=== PATIENT | female | born 1990 | race Caucasian/White ===

== ENCOUNTER 2017-11-14 16:30 | Emergency (ER) | payer SELFPAY ==
[2017-11-14 16:44] VITALS: BP 149/91
--- NOTE | 2017-11-14 17:12 | EDM.PDOC ---
ED HPI GENERAL MEDICAL PROBLEM - General Chief Complaint: ENT Problem Stated Complaint: INFECTED TOOTH Time Seen by Provider: 11/14/17 16:45 Source of Information: Reports: Patient, RN Notes Reviewed - History of Present Illness INITIAL COMMENTS - FREE TEXT/NARRATIVE: 26-year-old lady comes in with right upper posterior molar dental discomfort has been worsening over the past several days. Had light sensitivity fairly constant ache only partially relieved by Tylenol. Is about 21 weeks . The is been going well for her. No abdominal pain, fever, chills, nausea or vomiting. Right Upper Tooth/Teeth Pain Score (Numeric/FACES): 6 - Related Data Allergies Allergy/AdvReac Type Severity Reaction Status Date / Time No Known Allergies Allergy Verified 03/09/16 01:32 Home Meds: Home Meds Ondansetron HCl [Zofran] 4 mg PO Q8H PRN 11/14/17 [History] Vit #108/Iron/FA [ One Tablet] 1 tab PO DAILY 11/14/17 [History ] Past Medical History - Past Health History Medical/Surgical History: Denies Medical/Surgical History Social & Family History - Family History Family Medical History: Noncontributory - Tobacco Use Smoking Status *Q: Never Smoker - Caffeine Use Caffeine Use: Reports: Coffee, Soda - Recreational Drug Use Recreational Drug Use: No - Living Situation & Occupation Living situation: Reports: Single Occupation: Employed ED ROS ENT - Review of Systems Review Of Systems: See Below Constitutional: Denies: Fever, Chills HEENT: Reports: Dental Pain Respiratory: Reports: No Symptoms Cardiovascular: Reports: No Symptoms GI/Abdominal: Reports: No Symptoms Musculoskeletal: Reports: No Symptoms Skin: Reports: No Symptoms Neurological: Reports: No Symptoms ED EXAM, ENT - Physical Exam Exam: See Below General Appearance: Alert, Mild Distress Nose: Normal Inspection Mouth/Throat: Dental Pain (There is some tenderness of the right upper posterior molar, no visible swelling, no drainage), Dental Tenderness. No: Pharyngeal Erythema, Throat Pain, Tonsillar Swelling Head: No: Facial Swelling Neck: No: Lymphadenopathy (L), Lymphadenopathy (R) Respiratory/Chest: No Respiratory Distress, Normal Breath Sounds Extremities: Normal Inspection, Normal Range of Motion Neurological: Alert, Oriented, No Motor/Sensory Deficits Skin: Warm, Dry, Normal Color Course - Vital Signs Last Recorded V/S: Last Vital Signs Temp 99.0 F 11/14/17 16:48 Pulse 93 11/14/17 16:43 Resp 20 11/14/17 16:43 BP 149/91 H 11/14/17 16:43 Pulse Ox 100 11/14/17 16:43 Departure - Departure Time of Disposition: 17:04 Disposition: Home, Self-Care 01 Condition: Fair Clinical Impression: Pain, dental, Second trimester - Discharge Information Instructions: Dental Abscess, [id number] Referrals: Josie Alcantara MD [Primary Care Provider] - Forms: ED Department Discharge Additional Instructions: Amoxicillin 1000 mg twice daily for 1 week, continue Tylenol 2-3 times daily or Tylenol 500 mg with one half tablet 12/07/24 hydrocodone up to every 6-8 hours if needed for severe pain or difficulty sleeping. See dentist as soon as possible. Follow-up clinic as needed, return to ED as needed if symptoms worsening in any way.
== END 2017-11-14 17:07 | disposition home or self-care (01) ==
LOC: SUPCPDRO 16:30 → JD.ED 16:30
DX: O99.612 Diseases of the digestive system complicating pregnancy, second trimester (principal); K08.89 Other specified disorders of teeth and supporting structures; Z3A.21 21 weeks gestation of pregnancy
CPT/HCPCS: 99282; 99283

== ENCOUNTER 2018-03-20 00:59 | Inpatient (IN) | payer SELFPAY ==
[2018-03-20] MEDS ORDERED: Sodium Chloride 0.9% 10 ML Syringe FLUSH PRN (12:41)
[2018-03-20] MEDS ORDERED: Nalbuphine 20 MG/ML 1 ML Syringe IVPUSH PRN (12:41)
[2018-03-20] MEDS ORDERED: Oxytocin/Lactated Ringers 10 UNIT/1,000 ML BAG IV SCH (13:30)
[2018-03-20] MEDS: Lactated Ringers 1,000 ML IV SCH ×3 (13:56→20:00)
--- NOTE | 2018-03-20 14:47 | PCM.PREANE ---
Preanesthetic Assessment - Anesthesia/Transfusion/Family Hx Anesthesia History: No Prior Anesthesia (Only epidural with the previous labor) Transfusion History: No Prior Transfusion(s) - Review of Systems General: No Symptoms Pulmonary: No Symptoms Cardiovascular: No Symptoms Gastrointestinal: No Symptoms Neurological: No Symptoms Other: Reports: None - Physical Assessment NPO Status Date: 03/20/18 NPO Status Time: 14:45 Pulse: 90 Blood Pressure: 135/73 Height: 1.57 m Weight: 77.111 kg ASA Class: 2 Mental Status: Alert & Oriented x3 Airway Class: Mallampati = 3 Dentition: Reports: Broken Tooth/Teeth (chipped upper incisors, caries rt upper molars) Thyro-Mental Finger Breadths: 3 Mouth Opening Finger Breadths: 3 ROM/Head Extension: Full - Lab Values: Laboratory Last Values WBC 10.77 K/mm3 (3.98-10.04) H 03/20/18 12:55 RBC 4.06 M/mm3 (3.98-5.22) 03/20/18 12:55 Hgb 12.6 gm/L (11.2-15.7) 03/20/18 12:55 Hct 36.1 % (34.1-44.9) 03/20/18 12:55 MCV 88.9 fl (79.4-94.8) 03/20/18 12:55 MCH 31.0 pg (25.6-32.2) 03/20/18 12:55 MCHC 34.9 g/dl (32.2-35.5) 03/20/18 12:55 RDW Std Deviation 45.9 fL (36.4-46.3) 03/20/18 12:55 Plt Count 190 K/mm3 (182-369) 03/20/18 12:55 MPV 11.0 fl (9.4-12.3) 03/20/18 12:55 Neut % (Auto) 72.3 % (34.0-71.1) H 03/20/18 12:55 Lymph % (Auto) 20.9 % (19.3-51.7) 03/20/18 12:55 Ida % (Auto) 5.8 % (4.7-12.5) 03/20/18 12:55 Eos % (Auto) 0.6 (0.7-5.8) L 03/20/18 12:55 Baso % (Auto) 0.1 % (0.1-1.2) 03/20/18 12:55 Neut # (Auto) 7.79 K/mm3 (1.56-6.13) H 03/20/18 12:55 Lymph # (Auto) 2.25 K/mm3 (1.18-3.74) 03/20/18 12:55 Ida # (Auto) 0.63 K/mm3 (0.24-0.36) H 03/20/18 12:55 Eos # (Auto) 0.06 K/mm3 (0.04-0.36) 03/20/18 12:55 Baso # (Auto) 0.01 K/mm3 (0.01-0.08) 03/20/18 12:55 BUN 10 mg/dL (7-18) 03/20/18 12:55 Creatinine 0.6 mg/dL (0.55-1.02) 03/20/18 12:55 Est Cr Clr Drug Dosing 111.39 mL/min 03/20/18 12:55 Estimated GFR (MDRD) > 60 mL/min (>60) 03/20/18 12:55 Uric Acid 5.9 mg/dL (2.6-6.0) 03/20/18 12:55 AST 16 U/L (15-37) 03/20/18 12:55 ALT 15 U/L (14-59) 03/20/18 12:55 Lactate Dehydrogenase 175 U/L (81-234) 03/20/18 12:55 Ur Random Creatinine 72.2 mg/dL (30.0-125.0) 03/20/18 13:00 U Random Total Protein 8.9 mg/dL (0.0-11.8) 03/20/18 13:00 Protein/Creatinin Ratio 123.3 mg/g (0-149) 03/20/18 13:00 RPR Non-reactive (NONREACTIVE) 03/20/18 12:55 - Allergies Allergies/Adverse Reactions: Allergies Allergy/AdvReac Type Severity Reaction Status Date / Time No Known Allergies Allergy Verified 03/09/16 01:32 - Acknowledgements Anesthesia Type Planned: Epidural Pt an Appropriate Candidate for the Planned Anesthesia: Yes Alternatives and Risks of Anesthesia Discussed w Pt/Guardian: Yes Pt/Guardian Understands and Agrees with Anesthesia Plan: Yes PreAnesthesia Questionnaire - Past Health History Medical/Surgical History: Denies Medical/Surgical History 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 OB/BYN History: induced HTN - SUBSTANCE USE Smoking Status *Q: Never Smoker Tobacco Use Within Last Twelve Months: No Second Hand Smoke Exposure: No Recreational Drug Use History: No - HOME MEDS Home Medications: Home Meds Ondansetron HCl [Zofran] 4 mg PO Q8H PRN 11/14/17 [History] Vit #108/Iron/FA [ One Tablet] 1 tab PO DAILY 11/14/17 [History ] - CURRENT (IN HOUSE) MEDS Current Meds: Current Medications Lactated Ringer's (Ringers, Lactated) 1,000 mls @ 100 mls/hr IV ASDIRECTED RICHA Last Admin: 03/20/18 13:56 Dose: 100 mls/hr Oxytocin/Lactated Ringer's (Pitocin In Lr 10 Units/1,000 Ml) 10 unit in 1,000 mls @ 12 mls/hr IV TITRATE RICHA; Protocol Last Admin: 03/20/18 13:55 Dose: 2 munits/min, 12 mls/hr Nalbuphine HCl (Nubain) 10 mg IVPUSH Q2H PRN PRN Reason: pain Sodium Chloride (Saline Flush) 10 ml FLUSH ASDIRECTED PRN PRN Reason: Keep Vein Open
[2018-03-20] MEDS ORDERED: fentaNYL 100 MCG/2 ML SDV EPIDUR PRN (15:02)
[2018-03-20] MEDS ORDERED: Bupivacaine/fentaNYL/NS 100 ML Bag EPIDUR SCH (15:15)
[2018-03-20] MEDS ORDERED: Bupivacaine 0.25% 10 ML SDV ONE (22:00)
--- NOTE | 2018-03-21 01:21 | PCM.SN ---
- Free Text/Narrative Note: Stage I -patient presented with elevated blood pressures from clinic decision to induce for gestational hypertension. Pitocin induction with artificial rupture of membranes. Epidural anesthesia. Normal labs. Progressed to complete with overall reassuring heart tones. Stage II - spontaneous vaginal delivery of viable female, weight 20/9/20 grams, Apgars 8/9 at 1259. Head delivered in a controlled manner over intact perineum, body and shoulders followed atraumatically. Infant to maternal abdomen. Cord clamped and cut. Cord blood collected. Stage III - spontaneous vaginal delivery of intact placenta with three-vessel cord EBL 250 no lacerations.
[2018-03-21] MEDS ORDERED: Benzocaine/Menthol 20%-0.5% Spray 56 GM Canister TOP PRN (02:18)
[2018-03-21] MEDS ORDERED: Docusate Sodium 100 MG Cap PO PRN (02:18)
[2018-03-21] MEDS ORDERED: Witch Hazel Medicated Pads 100/Jar TOP PRN (02:18)
[2018-03-21] MEDS ORDERED: Lanolin 100% Cream 7 GM Tube TOP PRN (02:18)
[2018-03-21] MEDS: Ibuprofen 600 MG Tab PO PRN ×3 (03:32→23:18)
--- NOTE | 2018-03-21 14:08 | PCM48HPAN ---
Post Anesthesia Note - EVALUATION WITHIN 48HRS OF ANESTHETIC Vital Signs in Normal Range: Yes Patient Participated in Evaluation: Yes Respiratory Function Stable: Yes Airway Patent: Yes Cardiovascular Function Stable: Yes Hydration Status Stable: Yes Pain Control Satisfactory: Yes Nausea and Vomiting Control Satisfactory: Yes Mental Status Recovered: Yes Pulse Rate: 80 Resp Rate: 16 Temperature: 98.6 F Blood Pressure: 125/72 - COMMENTS/OBSERVATIONS Free Text/Narrative:: Patient is on her day 1. Stated understanding about possible backaches following epidural anesthesia. Mentions having some minor back soreness at this time. Explanation given about importance of avoiding back straining. Denies any headache or lightheadedness at this time. Comfortable now. Ambulating, no difficulty urinating.
[2018-03-22 04:46] VITALS: BP 125/74
--- NOTE | 2018-03-22 12:14 | PCM.DCSUM1 ---
Discharge Summary - Hospital Course Brief History: Admitted for induction. Uncomplicated labor, delivery and Diagnosis: Stroke: No - Discharge Data Discharge Date: 03/22/18 Discharge Disposition: Home, Self-Care 01 Condition: Good - Patient Instructions Diet: Usual Diet as Tolerated Activity: No Strenuous Activities Driving: May Drive Today Showering/Bathing: May Shower Notify Provider of: Fever, Increased Pain, Swelling and Redness, Drainage, Nausea and/or Vomiting - Discharge Plan *PRESCRIPTION DRUG MONITORING PROGRAM REVIEWED*: No *COPY OF PRESCRIPTION DRUG MONITORING REPORT IN PATIENT BAM: No Referrals: Josie Alcantara MD [Primary Care Provider] - (6 weeks) - General Info Date of Service: 03/22/18 Functional Status: Reports: Pain Controlled - Review of Systems General: Reports: No Symptoms HEENT: Reports: No Symptoms Pulmonary: Reports: No Symptoms Cardiovascular: Reports: No Symptoms Gastrointestinal: Reports: No Symptoms Genitourinary: Reports: No Symptoms Musculoskeletal: Reports: No Symptoms Skin: Reports: No Symptoms Neurological: Reports: No Symptoms Psychiatric: Reports: No Symptoms - Patient Data Vitals - Most Recent: Last Vital Signs Temp 36.8 C 03/22/18 04:02 Pulse 89 03/22/18 04:02 Resp 16 03/22/18 04:02 BP 125/74 03/22/18 04:02 Pulse Ox 97 03/22/18 04:02 Weight - Most Recent: 77.111 kg I&O - Last 24 hours: Intake & Output 03/21/18 03/22/18 03/22/18 22:59 06:59 14:59 Intake Total 60 2 300 Balance 60 2 300 Lab Results - Last 24 hrs: Laboratory Results - last 24 hr 03/21/18 Range/Units 15:01 Blood Type A NEGATIVE Gel Antibody Screen Negative Screen 0 ros/5 flds - neg RhIG Candidate? Yes Rhogam Indicated Yes, baby rh pos H Med Orders - Current: Current Medications Benzocaine/Menthol (Dermoplast Pain Relief [place]) 0 gm TOP ASDIRECTED PRN PRN Reason: Perineal Comfort Measure Docusate Sodium (Colace) 100 mg PO BID PRN PRN Reason: Constipation Emollient Ointment (Lansinoh Hpa) 0 gm TOP ASDIRECTED PRN PRN Reason: Sore Nipples Last Admin: 03/21/18 17:19 Dose: 1 tube Ibuprofen (Motrin) 600 mg PO Q6H PRN PRN Reason: Mild pain or fever Last Admin: 03/21/18 23:18 Dose: 600 mg Witch Anaya (Tucks) 1 pad TOP ASDIRECTED PRN PRN Reason: Hemorrhoid pain Discontinued Medications Bupivacaine HCl (Sensorcaine-Mpf 0.25%) 10 ml .ROUTE .STK-MED ONE Stop: 03/20/18 22:01 Fentanyl (Sublimaze) 100 mcg EPIDUR Q3H PRN PRN Reason: Pain Last Admin: 03/20/18 19:16 Dose: 100 mcg Fentanyl/Bupivacaine HCl (Fentanyl/Bupivacaine/Ns 2 Mcg-0.125% 100 Ml) 100 ml EPIDUR ASDIRECTED RICHA Last Admin: 03/20/18 19:16 Dose: 100 ml Lactated Ringer's (Ringers, Lactated) 1,000 mls @ 100 mls/hr IV ASDIRECTED RICHA Last Admin: 03/20/18 20:00 Dose: 100 mls/hr Oxytocin/Lactated Ringer's (Pitocin In Lr 10 Units/1,000 Ml) 10 unit in 1,000 mls @ 12 mls/hr IV TITRATE RICHA; Protocol Last Titration: 03/21/18 00:04 Dose: 11 munits/min, 66 mls/hr Nalbuphine HCl (Nubain) 10 mg IVPUSH Q2H PRN PRN Reason: pain Sodium Chloride (Saline Flush) 10 ml FLUSH ASDIRECTED PRN PRN Reason: Keep Vein Open - Exam General: Reports: Alert, Oriented HEENT: Reports: Pupils Equal, Pupils Reactive, EOMI, Mucous Membr. Moist/Light [place] Neck: Reports: Supple Lungs: Reports: Clear to Auscultation, Normal Respiratory Effort Cardiovascular: Reports: Regular Rate, Regular Rhythm GI/Abdominal Exam: Normal Bowel Sounds, Soft, Non-Tender, No Organomegaly, No Distention, No Abnormal Bruit, No Mass, Pelvis Stable (Female) Exam: Normal External Exam, Normal Speculum Exam, Normal Bimanual Exam Back Exam: Reports: Normal Inspection, Full Range of Motion Extremities: Normal Inspection, Normal Range of Motion, Non-Tender, No Pedal Edema, Normal Capillary Refill Skin: Reports: Warm, Dry, Intact Wound/Incisions: Reports: Healing Well Neurological: Reports: No New Focal Deficit Psy/Mental Status: Reports: Alert, Normal Affect, Normal Mood
== END 2018-03-22 14:05 | disposition home or self-care (01) | DRG 775 ==
LOC: JD.OB 00:59 → OBSVTOIN 03-21 00:59 → JD.OB 03-21 01:00
PROVIDERS: ADMIT Obstetrics & Gynecology; ATTEND Obstetrics & Gynecology
PROC: 10907ZC Drainage of Amniotic Fluid, Therapeutic from Products of Conception, Via Natural or Artificial Opening (ICD-10-PCS; 2018-03-20)
PROC: 00HU33Z Insertion of Infusion Device into Spinal Canal, Percutaneous Approach (ICD-10-PCS; 2018-03-20)
PROC: 3E0R3BZ Introduction of Anesthetic Agent into Spinal Canal, Percutaneous Approach (ICD-10-PCS; 2018-03-20)
PROC: 10E0XZZ Delivery of Products of Conception, External Approach (ICD-10-PCS; principal; 2018-03-21)
PROC: 6A550ZT Pheresis of Cord Blood Stem Cells, Single (ICD-10-PCS; 2018-03-21)
DX: O13.4 Gestational [pregnancy-induced] hypertension without significant proteinuria, complicating childbirth (principal); Z3A.39 39 weeks gestation of pregnancy; Z37.0 Single live birth
CPT/HCPCS: 36415; 36430; 51702; 59025; 59409; 82565; 82570; 83615; 84156; 84450; 84460; 84520; 84550; 85025; 85461; 86592; 86850; 86900; 86901; A9270-GY; J2590; J2790; J3010; J3490; J7120

== ENCOUNTER 2018-09-08 11:10 | Emergency (ER) | payer MEDICAID ==
[2018-09-08 11:41] VITALS: BP 136/88
--- NOTE | 2018-09-08 11:57 | EDM.PDOC ---
ED HPI GENERAL MEDICAL PROBLEM - General Chief Complaint: Head Injury Stated Complaint: HEAD INJURY Time Seen by Provider: 09/08/18 11:35 Source of Information: Reports: Patient, RN Notes Reviewed - History of Present Illness INITIAL COMMENTS - FREE TEXT/NARRATIVE: 27-year-old female slipped on the ice, fell backwards late last evening about 12 hours ago striking the back of her head fairly hard. She was dazed mildly but there was no LOC. Have moderate headache and dizziness after the fall last evening. The headache is less severe this morning but still present. She does have intermittent nausea this morning and also feels some nonspecific dizziness , especially when moving. She has had no memory loss, speech difficulty, focal numbness or weakness. No history of prior concussions. Mild neck stiffness, no major back discomfort. 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 Denies: Fever, Chills, Diaphoresis HEENT: Denies: Sinus Problem, Throat Pain, Vertigo Respiratory: Denies: Pleuritic Chest Pain Cardiovascular: Denies: Chest Pain GI/Abdominal: Reports: Nausea. Denies: Abdominal Pain, Vomiting Musculoskeletal: Reports: Neck Pain (Mild soreness especially right-sided) Skin: Reports: No Symptoms Neurological: Reports: Dizziness, Headache. Denies: Confusion, Numbness, Trouble Speaking, Difficulty Walking, Weakness, Change in Speech, Gait Disturbance ED EXAM, HEAD INJURY - Physical Exam Exam: See Below General Appearance: Alert, Mild Distress Head: Atraumatic, Other (No visible bruising or swelling, no bony tenderness of the head or face) Eyes: Bilateral Eye: PERRL Nose: Normal Inspection Throat/Mouth: Normal Inspection Neck: Tenderness. No: Spinous Processes Tender, Tender Midline Respiratory: No Respiratory Distress, Lungs Clear, Normal Breath Sounds Cardiovascular: Regular Rate, Rhythm GI/Abdominal Exam: Soft, Non-Tender Back Exam: Other (No visible bruising or swelling). No: Paraspinal Tenderness, Vertebral Tenderness Extremities: Normal Inspection, Normal Range of Motion Neurologic: No Motor/Sensory Deficits, Normal Mood/Affect, Oriented x 3, Other ( Finger to nose testing normal) Skin: Normal Color, Warm/Dry Course - Vital Signs Last Recorded V/S: Last Vital Signs Temp 97.5 F 09/08/18 11:33 Pulse 75 09/08/18 11:33 Resp 14 09/08/18 11:33 BP 136/88 09/08/18 11:33 Pulse Ox 99 09/08/18 11:33 - Re-Assessments/Exams Free Text/Narrative Re-Assessment/Exam: 09/08/18 12:29 Patient had no LOC, she does have mild headache today somewhat worse with motion but much improved from last evening. Her main concerns are the nonspecific dizziness and intermittent nausea. We have discussed that these are fairly typical symptoms of mild to moderate concussion. The treatment for concussion is rest and time. Head CT not clinically indicated at this time. She is good with that. Discharge instructions as documented. Departure - Departure Time of Disposition: 11:55 Disposition: Home, Self-Care 01 Condition: Fair Clinical Impression: Concussion with no loss of consciousness - Discharge Information Instructions: Concussion, Adult, [id number] Referrals: Nelly Gee PA-C [Primary Care Provider] - Forms: ED Department Discharge Additional Instructions: The treatment for concussion is rest and time. Rest as best you can, especially this next few days, physical rest and also brain rest is tremendously important. no strenuous activity recommended for at least a week, you may use Zofran every 6-8 hours if needed for nausea or vomiting, may safely take Tylenol every 6-8 hours if needed for further headache, low clinic if symptoms of headache, nausea, dizziness not resolving over the next 2-3 days as expected , return to ED as needed if symptoms worsening in any way.
== END 2018-09-08 12:05 | disposition home or self-care (01) ==
LOC: JD.ED 11:10
DX: S06.0X0A Concussion without loss of consciousness, initial encounter (principal); I10 Essential (primary) hypertension; W19.XXXA Unspecified fall, initial encounter
CPT/HCPCS: 99283

== ENCOUNTER 2019-08-28 15:13 | Inpatient (IN) | payer MEDICAID ==
[2019-08-28] MEDS ORDERED: Lidocaine 1.5% with EPINEPHrine 1:200,000 5 ML Amp ONE (16:00)
[2019-08-28] MEDS ORDERED: Nalbuphine 10 MG/ML Syringe IVPUSH PRN (16:02)
[2019-08-28] MEDS ORDERED: Sodium Chloride 0.9% 10 ML Syringe FLUSH PRN (16:02)
[2019-08-28] MEDS ORDERED: ePHEDrine 50 MG/ML SDV IVPUSH PRN (16:04)
[2019-08-28] MEDS ORDERED: diphenhydrAMINE 50 MG/ML SDV IVPUSH PRN (16:04)
[2019-08-28] MEDS ORDERED: fentaNYL/Bupivacaine/NS 2 MCG-0.125% 250 ML EPIDUR PRN (16:04)
[2019-08-28] MEDS ORDERED: fentaNYL 100 MCG/2 ML SDV EPIDUR PRN (16:04)
[2019-08-28] MEDS ORDERED: Oxytocin/Lactated Ringers 10 UNIT/1,000 ML BAG IV SCH ×2 (16:15)
--- NOTE | 2019-08-28 16:19 | PCM.PREANE ---
Preanesthetic Assessment - Procedure Proposed Procedure: Continuous Labor Epidural - Anesthesia/Transfusion/Family Hx Anesthesia History: Prior Anesthesia Without Reaction (Only epidural with the previous labor) Transfusion History: No Prior Transfusion(s) Intubation History: Unknown - Review of Systems General: No Symptoms Pulmonary: No Symptoms Cardiovascular: No Symptoms Gastrointestinal: No Symptoms Neurological: No Symptoms Other: Reports: None - Physical Assessment Height: 1.57 m Weight: 80.286 kg ASA Class: 2 Mental Status: Alert & Oriented x3 Airway Class: Mallampati = 3 Dentition: Reports: Broken Tooth/Teeth (chipped upper incisors , caries rt upper molars), Caries Thyro-Mental Finger Breadths: 3 Mouth Opening Finger Breadths: 3 ROM/Head Extension: Full Lungs: Clear to Auscultation, Normal Respiratory Effort Cardiovascular: Regular Rate, Regular Rhythm - Lab Values: Laboratory Last Values Membrane Rupture Positive H 08/28/19 15:33 - Allergies Allergies/Adverse Reactions: Allergies Allergy/AdvReac Type Severity Reaction Status Date / Time No Known Allergies Allergy Verified 09/08/18 11:32 - Blood Blood Available: Yes Product(s) Available: PRBC - Anesthesia Plan Beta Carlos A: Labetalol - Acknowledgements Anesthesia Type Planned: Epidural Pt an Appropriate Candidate for the Planned Anesthesia: Yes Alternatives and Risks of Anesthesia Discussed w Pt/Guardian: Yes Pt/Guardian Understands and Agrees with Anesthesia Plan: Yes PreAnesthesia Questionnaire - Past Health History Medical/Surgical History: Denies Medical/Surgical History Cardiovascular History: Reports: Hypertension (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) 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 OB/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 History: induced HTN - HOME MEDS Home Medications: Home Meds Labetalol [Normodyne] 100 mg PO BID 08/28/19 [History] - CURRENT (IN HOUSE) MEDS Current Meds: Current Medications Diphenhydramine HCl (Benadryl) 25 mg IVPUSH Q6H PRN PRN Reason: pruritis Ephedrine Sulfate (Ephedrine Sulfate) 5 mg IVPUSH ASDIRECTED PRN PRN Reason: Hypotension Fentanyl (Sublimaze) 100 mcg EPIDUR Q3H PRN PRN Reason: Pain Fentanyl/Bupivacaine HCl (Fentanyl/Bupivacaine/Ns 2 Mcg-0.125% 250 Ml) 250 ml EPIDUR CONTINUOUS PRN PRN Reason: Pain Lactated Ringer's (Ringers, Lactated) 1,000 mls @ 100 mls/hr IV ASDIRECTED RICHA Oxytocin/Lactated Ringer's (Pitocin In Lr 10 Units/1,000 Ml) 10 unit in 1,000 mls @ 12 mls/hr IV TITRATE RICHA; Protocol Oxytocin/Lactated Ringer's (Pitocin In Lr 10 Units/1,000 Ml) 10 unit in 1,000 mls @ 100 mls/hr IV .CONTINUOUS RICHA Nalbuphine HCl (Nubain) 10 mg IVPUSH Q2H PRN PRN Reason: Pain Sodium Chloride (Saline Flush) 10 ml FLUSH ASDIRECTED PRN PRN Reason: Keep Vein Open
[2019-08-28] MEDS ORDERED: Labetalol 100 MG Tab PO ONE (16:46)
[2019-08-28] MEDS: Lactated Ringers 1,000 ML IV SCH ×3 (17:37→22:43)
--- NOTE | 2019-08-28 19:28 | PCM.LDHP ---
L&D History of Present Illness - General Date of Service: 08/28/19 Admit Problem/Dx: Patient Status Order with Admit Dx/Problem 08/28/19 15:22 Patient Status [ADT] Routine 08/28/19 16:03 Patient Status [ADT] Routine Admission Diagnosis/Problem Admission Diagnosis/Problem Source of Information: Patient History Limitations: Reports: No Limitations - History of Present Illness Introduction:: 28 year old at 38w3 here with SROM. PNC with myself complicated by hypertension. 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 Other OB/BYN History: induced HTN Hematologic History: Reports: Anemia Other Hematologic History: anemia in Social & Family History - Family History Family Medical History: Noncontributory - Tobacco Use Smoking Status *Q: Never Smoker - Caffeine Use Caffeine Use: Reports: Coffee - Recreational Drug Use Recreational Drug Use: No - Living Situation & Occupation Living situation: Reports: Single Occupation: Employed H&P Review of Systems - Review of Systems: Review Of Systems: See Below General: Reports: No Symptoms HEENT: Reports: No Symptoms Pulmonary: Reports: No Symptoms Cardiovascular: Reports: No Symptoms Gastrointestinal: Reports: No Symptoms Genitourinary: Reports: No Symptoms Musculoskeletal: Reports: No Symptoms Skin: Reports: No Symptoms Psychiatric: Reports: No Symptoms Neurological: Reports: No Symptoms Hematologic/Lymphatic: Reports: No Symptoms Immunologic: Reports: No Symptoms L&D Exam - Exam Exam: See Below - Vital Signs Vital Signs: Last Vital Signs Temp 37.3 C 08/28/19 15:22 Pulse 92 08/28/19 17:15 Resp 18 08/28/19 15:22 BP 153/85 H 08/28/19 17:15 Pulse Ox 99 08/28/19 15:22 Weight: 80.286 kg - OB Specific Contraction Intensity: Strong Movement: Active Heart Tones: Present Heart Rate (FHR) Variability: Moderate (6-25 bmp) Presentation: Vertex - Rice Score Rice Score Cervix Position: Midposition Rice Score Consistency: Soft Rice Score Effacement: 51-70% Rice Score Dilation: 3-4 cm Rice Score 's Station: -2 Rice Score Total: 8 - Exam General: Alert, Oriented HEENT: PERRLA, Conjunctiva Clear, EACs Clear, EOMI, Hearing Intact, Mucosa Moist & [place], Nares Patent, Normal Nasal Septum, Posterior Pharynx Clear, TMs Clear Neck: Supple, Trachea Midline Lungs: Clear to Auscultation, Normal Respiratory Effort Cardiovascular: Regular Rate, Regular Rhythm GI/Abdominal Exam: Normal Bowel Sounds, Soft, Non-Tender, No Organomegaly, No Distention, No Abnormal Bruit, No Mass, Pelvis Stable Back Exam: Normal Inspection, Full Range of Motion Extremities: Normal Inspection, Normal Range of Motion, Non-Tender, No Pedal Edema, Normal Capillary Refill Skin: Warm, Dry, Intact Neurological: Cranial Nerves Intact, Reflexes Equal Bilateral Psychiatric: Alert, Normal Affect, Normal Mood - Patient Data Lab Results Last 24 hrs: Laboratory Results - last 24 hr 08/28/19 08/28/19 08/28/19 Range/Units 15:33 16:17 16:17 WBC 11.02 H (3.98-10.04) K/mm3 RBC 4.25 (3.98-5.22) M/mm3 Hgb 12.8 (11.2-15.7) gm/dl Hct 37.7 (34.1-44.9) % MCV 88.7 (79.4-94.8) fl MCH 30.1 (25.6-32.2) pg MCHC 34.0 (32.2-35.5) g/dl RDW Std Deviation 47.2 H (36.4-46.3) fL Plt Count 235 (182-369) K/mm3 MPV 10.8 (9.4-12.3) fl Neut % (Auto) 71.8 H (34.0-71.1) % Lymph % (Auto) 20.8 (19.3-51.7) % [place] % (Auto) 6.4 (4.7-12.5) % Eos % (Auto) 0.6 L (0.7-5.8) Baso % (Auto) 0.1 (0.1-1.2) % Neut # (Auto) 7.92 H (1.56-6.13) K/mm3 Lymph # (Auto) 2.29 (1.18-3.74) K/mm3 [place] # (Auto) 0.70 H (0.24-0.36) K/mm3 Eos # (Auto) 0.07 (0.04-0.36) K/mm3 Baso # (Auto) 0.01 (0.01-0.08) K/mm3 Membrane Rupture Positive H Blood Type A NEGATIVE Gel Antibody Screen Negative Result Diagrams: 08/28/19 16:17 Problem List Initiated/Reviewed/Updated: Yes Orders Last 24hrs: Active Orders 24 hr Category Date Time Status Patient Status [ADT] Routine ADT 08/28/19 15:22 Active Patient Status [ADT] Routine ADT 08/28/19 16:03 Active Activity as Tolerated [RC] PFP Care 08/28/19 16:02 Active Communication Order [RC] ASDIRECTED Care 08/28/19 16:02 Active Heart Tones [RC] ASDIRECTED Care 08/28/19 16:03 Active Non Stress Test [RC] PER UNIT ROUTINE Care 08/28/19 15:22 Active Notify Provider [RC] ASDIRECTED Care 08/28/19 16:04 Active Notify Provider [RC] PFP Care 08/28/19 16:02 Active Notify Provider [RC] PRN Care 08/28/19 16:02 Active Peripheral IV Care [RC] . DIRECTED Care 08/28/19 16:03 Active Vital Signs [RC] PER UNIT ROUTINE Care 08/28/19 15:22 Active Regular Diet [DIET] Diet 08/28/19 Lunch Active RAPID PLASMA REAGIN,RPR [CHEM] Routine Lab 08/28/19 16:17 Received Bupivicaine/fentaNYL/NS [fentaNYL/Bupivacaine/NS 2 MCG- Med 08/28/19 16:04 Active 0.125% 250 ML] 250 ml EPIDUR CONTINUOUS PRN Lactated Ringers [Ringers, Lactated] 1,000 ml Med 08/28/19 16:15 Active IV ASDIRECTED Nalbuphine [Nubain] Med 08/28/19 16:02 Active 10 mg IVPUSH Q2H PRN Oxytocin/Lactated Ringers [Pitocin in LR 10 Units/1,000 Med 08/28/19 16:15 Active ML] 10 unit in 1,000 ml IV .CONTINUOUS Oxytocin/Lactated Ringers [Pitocin in LR 10 Units/1,000 Med 08/28/19 16:15 Active ML] 10 unit in 1,000 ml IV TITRATE Sodium Chloride 0.9% [Saline Flush] Med 08/28/19 16:02 Active 10 ml FLUSH ASDIRECTED PRN diphenhydrAMINE [Benadryl] Med 08/28/19 16:04 Active 25 mg IVPUSH Q6H PRN ePHEDrine [ePHEDrine sulfate] Med 08/28/19 16:04 Active 5 mg IVPUSH ASDIRECTED PRN fentaNYL [Sublimaze] Med 08/28/19 16:04 Active 100 mcg EPIDUR Q3H PRN Electronic Heart Tones Ext w TOCO [WOMSER] Oth 08/28/19 16:02 Ordered Routine Electronic Heart Tones Internal [WOMSER] Per Unit Oth 08/28/19 16:02 Ordered Routine Peripheral IV Insertion Adult [OM.PC] Routine Oth 08/28/19 16:02 Ordered Resuscitation Status Routine Resus Stat 08/28/19 15:22 Ordered Medication Orders Diphenhydramine HCl (Benadryl) 25 mg IVPUSH Q6H PRN PRN Reason: pruritis Ephedrine Sulfate (Ephedrine Sulfate) 5 mg IVPUSH ASDIRECTED PRN PRN Reason: Hypotension Fentanyl (Sublimaze) 100 mcg EPIDUR Q3H PRN PRN Reason: Pain Fentanyl/Bupivacaine HCl (Fentanyl/Bupivacaine/Ns 2 Mcg-0.125% 250 Ml) 250 ml EPIDUR CONTINUOUS PRN PRN Reason: Pain Lactated Ringer's (Ringers, Lactated) 1,000 mls @ 100 mls/hr IV ASDIRECTED RICHA Last Admin: 08/28/19 17:37 Dose: 100 mls/hr Oxytocin/Lactated Ringer's (Pitocin In Lr 10 Units/1,000 Ml) 10 unit in 1,000 mls @ 12 mls/hr IV TITRATE RICHA; Protocol Last Titration: 08/28/19 18:21 Dose: 4 munits/min, 24 mls/hr Admin: 08/28/19 17:37 Dose: 2 munits/min, 12 mls/hr Oxytocin/Lactated Ringer's (Pitocin In Lr 10 Units/1,000 Ml) 10 unit in 1,000 mls @ 100 mls/hr IV .CONTINUOUS RICHA Nalbuphine HCl (Nubain) 10 mg IVPUSH Q2H PRN PRN Reason: Pain Sodium Chloride (Saline Flush) 10 ml FLUSH ASDIRECTED PRN PRN Reason: Keep Vein Open Assessment/Plan Comment:: Term labor. Pitocin on. Varnu well. No other issues. Monitor blood pressures well. Anticipate
--- NOTE | 2019-08-28 23:44 | PCM.SN ---
- Free Text/Narrative Note: Stage I - Patient presented with SROM. Progressed to complete with pitocin augmentation. Epidural anesthesia. Stage II - of viable female, weight 2630g, 8/9 APGARS at 2329. Head delivered in controlled manner over intact perineum. Body and shoulders followed quickly. To maternal abdomen. Positive cry. Cord clamped and cut by father of baby. Cord blood collected. Stage III - of intact placenta. 3vc. No laceration. EBL 100
[2019-08-29] MEDS ORDERED: Docusate Sodium 100 MG Cap PO PRN (00:42)
[2019-08-29] MEDS ORDERED: Benzocaine/Menthol 20%-0.5% Spray 56 GM Canister TOP PRN (00:42)
[2019-08-29] MEDS: Ibuprofen 600 MG Tab PO PRN ×3 (01:55→20:53)
--- NOTE | 2019-08-29 06:59 | PCM.PNPP ---
- General Info Date of Service: 08/29/19 Functional Status: Reports: Pain Controlled - Review of Systems General: Reports: No Symptoms HEENT: Reports: No Symptoms Pulmonary: Reports: No Symptoms Cardiovascular: Reports: No Symptoms Gastrointestinal: Reports: No Symptoms Genitourinary: Reports: No Symptoms Musculoskeletal: Reports: No Symptoms Skin: Reports: No Symptoms Neurological: Reports: No Symptoms Psychiatric: Reports: No Symptoms - General Info Date of Service: 08/29/19 - Patient Data Vital Signs - Most Recent: Last Vital Signs Temp 36.5 C 08/29/19 03:24 Pulse 97 08/29/19 03:24 Resp 15 08/29/19 03:24 BP 141/81 H 08/29/19 03:24 Pulse Ox 97 08/29/19 03:24 Weight - Most Recent: 80.286 kg I&O - Last 24 Hours: Intake & Output 08/28/19 08/28/19 08/29/19 14:59 22:59 06:59 Intake Total 0 4000 Balance 0 4000 Lab Results - Last 24 Hours: Laboratory Results - last 24 hr 08/28/19 08/28/19 08/28/19 Range/Units 15:33 16:17 16:17 WBC 11.02 H (3.98-10.04) K/mm3 RBC 4.25 (3.98-5.22) M/mm3 Hgb 12.8 (11.2-15.7) gm/dl Hct 37.7 (34.1-44.9) % MCV 88.7 (79.4-94.8) fl MCH 30.1 (25.6-32.2) pg MCHC 34.0 (32.2-35.5) g/dl RDW Std Deviation 47.2 H (36.4-46.3) fL Plt Count 235 (182-369) K/mm3 MPV 10.8 (9.4-12.3) fl Neut % (Auto) 71.8 H (34.0-71.1) % Lymph % (Auto) 20.8 (19.3-51.7) % [place] % (Auto) 6.4 (4.7-12.5) % Eos % (Auto) 0.6 L (0.7-5.8) Baso % (Auto) 0.1 (0.1-1.2) % Neut # (Auto) 7.92 H (1.56-6.13) K/mm3 Lymph # (Auto) 2.29 (1.18-3.74) K/mm3 [place] # (Auto) 0.70 H (0.24-0.36) K/mm3 Eos # (Auto) 0.07 (0.04-0.36) K/mm3 Baso # (Auto) 0.01 (0.01-0.08) K/mm3 Membrane Rupture Positive H RPR Non-reactive (NONREACTIVE) Blood Type Gel Antibody Screen 08/28/19 08/29/19 Range/Units 16:17 05:10 WBC 14.60 H (3.98-10.04) K/mm3 RBC 3.87 L (3.98-5.22) M/mm3 Hgb 11.7 (11.2-15.7) gm/dl Hct 34.7 (34.1-44.9) % MCV 89.7 (79.4-94.8) fl MCH 30.2 (25.6-32.2) pg MCHC 33.7 (32.2-35.5) g/dl RDW Std Deviation 47.2 H (36.4-46.3) fL Plt Count 186 (182-369) K/mm3 MPV 10.5 (9.4-12.3) fl Neut % (Auto) (34.0-71.1) % Lymph % (Auto) (19.3-51.7) % [place] % (Auto) (4.7-12.5) % Eos % (Auto) (0.7-5.8) Baso % (Auto) (0.1-1.2) % Neut # (Auto) (1.56-6.13) K/mm3 Lymph # (Auto) (1.18-3.74) K/mm3 [place] # (Auto) (0.24-0.36) K/mm3 Eos # (Auto) (0.04-0.36) K/mm3 Baso # (Auto) (0.01-0.08) K/mm3 Membrane Rupture RPR (NONREACTIVE) Blood Type A NEGATIVE Gel Antibody Screen Negative Med Orders - Current: Current Medications Benzocaine/Menthol (Dermoplast Pain Relief [place]) 0 gm TOP ASDIRECTED PRN PRN Reason: Perineal Comfort Measure Last Admin: 08/29/19 01:56 Dose: 1 can Docusate Sodium (Colace) 100 mg PO BID PRN PRN Reason: Constipation Ibuprofen (Motrin) 600 mg PO Q6H PRN PRN Reason: Mild pain or fever Last Admin: 08/29/19 01:55 Dose: 600 mg Discontinued Medications Diphenhydramine HCl (Benadryl) 25 mg IVPUSH Q6H PRN PRN Reason: pruritis Ephedrine Sulfate (Ephedrine Sulfate) 5 mg IVPUSH ASDIRECTED PRN PRN Reason: Hypotension Fentanyl (Sublimaze) 100 mcg EPIDUR Q3H PRN PRN Reason: Pain Last Admin: 08/28/19 20:20 Dose: 100 mcg Fentanyl/Bupivacaine HCl (Fentanyl/Bupivacaine/Ns 2 Mcg-0.125% 250 Ml) 250 ml EPIDUR CONTINUOUS PRN PRN Reason: Pain Last Admin: 08/28/19 20:21 Dose: 250 ml Lactated Ringer's (Ringers, Lactated) 1,000 mls @ 100 mls/hr IV ASDIRECTED RICHA Last Admin: 08/28/19 22:43 Dose: 999 mls/hr Oxytocin/Lactated Ringer's (Pitocin In Lr 10 Units/1,000 Ml) 10 unit in 1,000 mls @ 12 mls/hr IV TITRATE RICHA; Protocol Last Titration: 08/28/19 20:30 Dose: 6 munits/min, 36 mls/hr Oxytocin/Lactated Ringer's (Pitocin In Lr 10 Units/1,000 Ml) 10 unit in 1,000 mls @ 100 mls/hr IV .CONTINUOUS RICHA Labetalol HCl (Normodyne) 100 mg PO ONETIME ONE Stop: 08/28/19 16:47 Last Admin: 08/28/19 17:15 Dose: 100 mg Nalbuphine HCl (Nubain) 10 mg IVPUSH Q2H PRN PRN Reason: Pain Sodium Chloride (Saline Flush) 10 ml FLUSH ASDIRECTED PRN PRN Reason: Keep Vein Open - Infant Interaction Support Person: Significant Other - Recovery Exam Fundal Tone: Firm Fundal Level: At Umbilicus Fundal Placement: Midline Lochia Amount: Small Lochia Color: Rubra/Red Episiotomy/Laceration: None Bladder Status: Voiding Urinary Elimination: Voided - Exam General: Alert, Oriented HEENT: Pupils Equal Neck: Supple Lungs: Clear to Auscultation, Normal Respiratory Effort Cardiovascular: Regular Rate, Regular Rhythm GI/Abdominal Exam: Normal Bowel Sounds, Soft, Non-Tender, No Organomegaly, No Distention, No Abnormal Bruit, No Mass, Pelvis Stable Extremities: Normal Inspection, Normal Range of Motion, Non-Tender, No Pedal Edema, Normal Capillary Refill Neurological: No New Focal Deficit Psy/Mental Status: Alert, Normal Affect, Normal Mood - Problem List Review Problem List Initiated/Reviewed/Updated: Yes - My Orders Last 24 Hours: My Active Orders 08/28/19 15:22 Resuscitation Status Routine 08/28/19 16:03 Heart Tones [RC] ASDIRECTED 08/29/19 00:42 Activity as Tolerated [RC] PER UNIT ROUTINE Vital Signs [RC] 09,15,21,03 Benzocaine/Menthol [Dermoplast Pain Relief [place]] See Dose Instructions TOP ASDIRECTED PRN Docusate Sodium [Colace] 100 mg PO BID PRN Ibuprofen [Motrin] 600 mg PO Q6H PRN Assess Lochia [WOMSER] Per Unit Routine Assess Uterine Involution [WOMSER] Per Unit Routine Breast Pump [WOMSER] Per Unit Routine Heat Therapy [OM.PC] PRN Medication Administration Instruction [OM.PC] Routine Perineal Care [OM.PC] Per Unit Routine Sitz Bath [OM.PC] Per Unit Routine 08/29/19 05:10 RHOGAM, [RHIG WORKUP, ] [BBK] Routine 08/29/19 Breakfast Regular Diet [DIET] 08/30/19 00:42 Heat Therapy [OM.PC] PRN - Assessment Assessment:: PPD1 Doing great - Plan Plan:: Likely home tomorrow.
--- NOTE | 2019-08-30 06:41 | PCM.DCSUM1 ---
Discharge Summary - Hospital Course Diagnosis: Stroke: No - Discharge Data Discharge Date: 08/30/19 Discharge Disposition: Home, Self-Care 01 Condition: Good - Referral to Home Health Primary Care Physician: Josie Alcantara MD - Patient Instructions Diet: Usual Diet as Tolerated Driving: May Drive Today Showering/Bathing: December Shower Notify Provider of: Fever, Increased Pain - Discharge Plan *PRESCRIPTION DRUG MONITORING PROGRAM REVIEWED*: No *COPY OF PRESCRIPTION DRUG MONITORING REPORT IN PATIENT BAM: No Home Medications: Home Meds Labetalol [Normodyne] 100 mg PO BID 08/28/19 [History] Referrals: Josie Alcantara MD [Primary Care Provider] - (2 weeks) - Discharge Summary/Plan Comment DC Time >30 min.: No - General Info Date of Service: 08/30/19 Functional Status: Reports: Pain Controlled - Review of Systems General: Reports: No Symptoms HEENT: Reports: No Symptoms Pulmonary: Reports: No Symptoms Cardiovascular: Reports: No Symptoms Gastrointestinal: Reports: No Symptoms Genitourinary: Reports: No Symptoms Musculoskeletal: Reports: No Symptoms Skin: Reports: No Symptoms Neurological: Reports: No Symptoms Psychiatric: Reports: No Symptoms - Patient Data Vitals - Most Recent: Last Vital Signs Temp 36.8 C 08/30/19 02:24 Pulse 92 08/30/19 02:24 Resp 16 08/30/19 02:24 BP 132/82 08/30/19 02:24 Pulse Ox 99 08/30/19 02:24 Weight - Most Recent: 80.286 kg I&O - Last 24 hours: Intake & Output 08/29/19 08/29/19 08/30/19 14:59 22:59 06:59 Intake Total 321 180 Balance 321 180 Lab Results - Last 24 hrs: Laboratory Results - last 24 hr 08/29/19 Range/Units 05:10 Blood Type A NEGATIVE Gel Antibody Screen Negative Screen 3 ros/5 flds - neg RhIG Candidate? Yes Rhogam Indicated Yes, baby rh pos H Med Orders - Current: Current Medications Benzocaine/Menthol (Dermoplast Pain Relief [place]) 0 gm TOP ASDIRECTED PRN PRN Reason: Perineal Comfort Measure Last Admin: 08/29/19 01:56 Dose: 1 can Docusate Sodium (Colace) 100 mg PO BID PRN PRN Reason: Constipation Ibuprofen (Motrin) 600 mg PO Q6H PRN PRN Reason: Mild pain or fever Last Admin: 08/29/19 20:53 Dose: 600 mg Discontinued Medications Diphenhydramine HCl (Benadryl) 25 mg IVPUSH Q6H PRN PRN Reason: pruritis Ephedrine Sulfate (Ephedrine Sulfate) 5 mg IVPUSH ASDIRECTED PRN PRN Reason: Hypotension Fentanyl (Sublimaze) 100 mcg EPIDUR Q3H PRN PRN Reason: Pain Last Admin: 08/28/19 20:20 Dose: 100 mcg Fentanyl/Bupivacaine HCl (Fentanyl/Bupivacaine/Ns 2 Mcg-0.125% 250 Ml) 250 ml EPIDUR CONTINUOUS PRN PRN Reason: Pain Last Admin: 08/28/19 20:21 Dose: 250 ml Lactated Ringer's (Ringers, Lactated) 1,000 mls @ 100 mls/hr IV ASDIRECTED RICHA Last Admin: 08/28/19 22:43 Dose: 999 mls/hr Oxytocin/Lactated Ringer's (Pitocin In Lr 10 Units/1,000 Ml) 10 unit in 1,000 mls @ 12 mls/hr IV TITRATE RICHA; Protocol Last Titration: 08/28/19 20:30 Dose: 6 munits/min, 36 mls/hr Oxytocin/Lactated Ringer's (Pitocin In Lr 10 Units/1,000 Ml) 10 unit in 1,000 mls @ 100 mls/hr IV .CONTINUOUS RICHA Labetalol HCl (Normodyne) 100 mg PO ONETIME ONE Stop: 08/28/19 16:47 Last Admin: 08/28/19 17:15 Dose: 100 mg Lidocaine/Epinephrine (Xylocaine-Mpf 1.5% W/Epinephrine 1:200,000) 5 ml .ROUTE .STK-MED ONE Stop: 08/28/19 16:01 Nalbuphine HCl (Nubain) 10 mg IVPUSH Q2H PRN PRN Reason: Pain Sodium Chloride (Saline Flush) 10 ml FLUSH ASDIRECTED PRN PRN Reason: Keep Vein Open - Exam General: Reports: Alert, Oriented HEENT: Reports: Pupils Equal, Pupils Reactive, EOMI, Mucous Membr. Moist/[place] Neck: Reports: Supple Lungs: Reports: Normal Respiratory Effort GI/Abdominal Exam: Normal Bowel Sounds, Soft, Non-Tender, No Organomegaly, No Distention, No Abnormal Bruit, No Mass Rectal (Female) Exam: Normal Exam, Normal Rectal Tone Back Exam: Reports: Normal Inspection, Full Range of Motion Extremities: Normal Inspection, Normal Range of Motion, Non-Tender, No Pedal Edema, Normal Capillary Refill Skin: Reports: Warm, Dry, Intact Wound/Incisions: Reports: Healing Well Neurological: Reports: No New Focal Deficit Psy/Mental Status: Reports: Alert, Normal Affect, Normal Mood
--- NOTE | 2019-08-30 09:03 | PCM48HPAN ---
Post Anesthesia Note - EVALUATION WITHIN 48HRS OF ANESTHETIC Vital Signs in Normal Range: Yes Patient Participated in Evaluation: Yes Respiratory Function Stable: Yes Airway Patent: Yes Cardiovascular Function Stable: Yes Hydration Status Stable: Yes Pain Control Satisfactory: Yes Nausea and Vomiting Control Satisfactory: Yes Mental Status Recovered: Yes Vital Signs: Last Vital Signs Temp 98.2 F 08/30/19 02:24 Pulse 92 08/30/19 02:24 Resp 16 08/30/19 02:24 BP 132/82 08/30/19 02:24 Pulse Ox 99 08/30/19 02:24 - COMMENTS/OBSERVATIONS Free Text/Narrative:: Patient is on her day 1. Stated understanding about possible backaches following epidural anesthesia. Reports no back soreness at this time. Explanation given about importance of avoiding back straining. Denies any headache or lightheadedness at this time. Comfortable now. Ambulating, no difficulty urinating.
[2019-08-30 13:01] VITALS: BP 143/83; PULSE 80
== END 2019-08-30 10:30 | disposition home or self-care (01) | DRG 807 ==
LOC: JD.OBCHECK 15:13 → JD.OB 15:14 → JD.OBCHECK 16:03 → OBSVTOIN 23:29 → JD.OB 23:29
PROVIDERS: ADMIT Obstetrics & Gynecology; ATTEND Obstetrics & Gynecology
PROC: 10E0XZZ Delivery of Products of Conception, External Approach (ICD-10-PCS; principal; 2019-08-28)
PROC: 3E0R3BZ Introduction of Anesthetic Agent into Spinal Canal, Percutaneous Approach (ICD-10-PCS; 2019-08-28)
PROC: 00HU33Z Insertion of Infusion Device into Spinal Canal, Percutaneous Approach (ICD-10-PCS; 2019-08-28)
PROC: 3E0334Z Introduction of Serum, Toxoid and Vaccine into Peripheral Vein, Percutaneous Approach (ICD-10-PCS; 2019-08-29)
DX: O10.92 Unspecified pre-existing hypertension complicating childbirth (principal); Z37.0 Single live birth; O26.893 Other specified pregnancy related conditions, third trimester; Z67.11 Type A blood, Rh negative; Z3A.38 38 weeks gestation of pregnancy; Z79.899 Other long term (current) drug therapy
CPT/HCPCS: 01967; 36415; 51702; 59025; 59409; 84112; 85025; 85027; 85461; 86592; 86850; 86900; 86901; A9270-GY; J2590; J2790; J3010; J7120

== ENCOUNTER 2019-10-16 17:55 | Emergency (ER) | payer MEDICAID ==
[2019-10-16 18:08] VITALS: BP 147/88; PULSE 117
[2019-10-16] MEDS ORDERED: Ketorolac 60 MG/2 ML SDV IM ONE (18:33)
--- NOTE | 2019-10-16 18:39 | EDM.PDOC ---
ED HPI GENERAL MEDICAL PROBLEM - General Chief Complaint: Respiratory Problem Stated Complaint: COLD SX Time Seen by Provider: 10/16/19 18:15 Source of Information: Reports: Patient, RN Notes Reviewed History Limitations: Reports: No Limitations - History of Present Illness INITIAL COMMENTS - FREE TEXT/NARRATIVE: Patient is a 28-year-old female who presents to the ED for the evaluation of her cold-like symptoms. Patient notes this started sometime Monday night or Monday morning. She does note that she had a daughter that was diagnosed with RSV on Monday, she was taking care of her all weekend so thought maybe she caught an illness from her daughter. She is complaining of fever, all over body aches, cough with some chest tenderness due to the cough. Patient did not take her temperature at home, but states she did feel hot and cold today. She did not take any sort of Tylenol or ibuprofen or any other [id number] medications for this. Her temperature at time of triage is 99.7 F, but the patient does feel much more warm to the touch than this. She states that she will be seeing Nelly Gee as a primary care provider but has not set up care at this point in time yet. The patient states that she is having some left -sided breast tenderness, in the upper outer quadrant, and is breast-feeding at this time. She states that the pain/tenderness decreased mildly after she pumped today. She did not notice any redness or swelling to the left breast. She is not complaining of any nausea/vomiting/diarrhea, she states she has not had much of an appetite but is still eating at this time. 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 Other COPIER REPAIR TECHNICIAN History: induced HTN Hematologic History: Reports: Anemia Other Hematologic History: anemia in Social & Family History - Family History Family Medical History: Noncontributory - Tobacco Use Smoking Status *Q: Never Smoker Second Hand Smoke Exposure: No - Caffeine Use Caffeine Use: Reports: Coffee - Recreational Drug Use Recreational Drug Use: No - Living Situation & Occupation Living situation: Reports: Single Occupation: Employed ED ROS GENERAL - Review of Systems Review Of Systems: See Below Constitutional: Reports: Fever, Chills, Malaise, Decreased Appetite HEENT: Reports: Rhinitis. Denies: Throat Pain Respiratory: Reports: Cough. Denies: Shortness of Breath Cardiovascular: Reports: Chest Pain (mild chest discomfort with cough) GI/Abdominal: Denies: Abdominal Pain, Constipation, Diarrhea, Nausea, Vomiting : Reports: Other (Left breast tenderness) Skin: Denies: Erythema ED EXAM, GENERAL - Physical Exam Exam: See Below Exam Limited By: No Limitations General Appearance: Alert, WD/WN, No Apparent Distress Eye Exam: Bilateral Eye: Conjunctival Injection, EOMI, PERRL Ears: Normal External Exam, Normal Canal, Hearing Grossly Normal, Normal TMs Nose: Normal Inspection, Nasal Swelling (bilateral injected turbinates) Throat/Mouth: Normal Inspection, Normal Lips, Normal Teeth, Normal Oropharynx, Normal Voice, No Airway Compromise Head: Atraumatic, Normocephalic Neck: Normal Inspection, Supple, Non-Tender, Full Range of Motion Respiratory/Chest: No Respiratory Distress, Lungs Clear, Normal Breath Sounds, No Accessory Muscle Use, Chest Non-Tender Cardiovascular: Normal Peripheral Pulses, Regular Rate, Rhythm, No Murmur GI/Abdominal: Normal Bowel Sounds, Soft, Non-Tender, No Distention, No Mass (Female) Exam: Other (Patient's breasts were examined, the left breast is tender on the upper outer quadrant mainly. No nodules are discernible, there is no fluctuance or erythema noted to suggest infection at this time.) Extremities: Normal Inspection, Normal Capillary Refill Neurological: Alert, Oriented, Normal Cognition, No Motor/Sensory Deficits Psychiatric: Normal Affect, Normal Mood Skin Exam: Warm, Dry, Intact, Normal Color, No Rash Course - Vital Signs Last Recorded V/S: Last Vital Signs Temp 99.7 F 10/16/19 18:04 Pulse 117 H 10/16/19 18:04 Resp 18 10/16/19 18:04 BP 147/88 H 10/16/19 18:04 Pulse Ox 100 10/16/19 18:04 - Orders/Labs/Meds Meds: Medications Discontinued Medications Generic Name Dose Route Start Last Admin Trade Name Bryanna PRN Reason Stop Dose Admin Ketorolac Tromethamine 60 mg 10/16/19 18:33 10/16/19 19:02 Toradol IM 10/16/19 18:34 60 mg ONETIME ONE Administration - Re-Assessments/Exams Free Text/Narrative Re-Assessment/Exam: 10/16/19 18:39 Patient presents to the ED for the evaluation of her ongoing cold-like symptoms. Influenza swab was obtained at time of triage. I do believe the patient is suffering from a viral upper respiratory illness however. Patient's upper outer left breast was tender to palpation, there is no discernible sign of infection at this time, I will have her keep pumping the breast to provide drainage to see if this does not help and watch the area to make sure there is no signs of infection that are starting. She will be given 60 mg IM Toradol for pain management. 10/16/19 19:32 Patient's influenza screen is negative, she is feeling a little bit better, will discharge home with general recommendations. Departure - Departure Time of Disposition: 19:35 Disposition: Home, Self-Care 01 Condition: Fair Clinical Impression: Viral URI with cough - Discharge Information *PRESCRIPTION DRUG MONITORING PROGRAM REVIEWED*: No *COPY OF PRESCRIPTION DRUG MONITORING REPORT IN PATIENT BAM: No Instructions: Viral Respiratory Infection, [id number] Referrals: Nelly Gee PA-C [Primary Care Provider] - Forms: ED Department Discharge Additional Instructions: You have been evaluated in the ED today for your cold like symptoms, cough, and fever. This is likely a viral illness in etiology. Your influenza screen was negative at today's visit. Please increase your fluid intake. Get plenty of rest as well. You should feel better in a few days. Recommend that you take some [id number] nasal decongestants, cough/cold remedies to combat this. Medicines like NyQuil, DayQuil, phenylephrine and other sinus decongestants are adequate. You were given a prescription for some stronger cough medications, this does contain codeine, you should not drive vehicles while taking this medication. If your symptoms are not better in one week's time recommend that you follow up in a clinic or your primary care provider. Our [facility] clinic number is , the [facility] is [phone]. Any family practice provider would be able to provide you with the services. Please return to the ED if your symptoms change or worsen. Sepsis Event Note - Evaluation Sepsis Screening Result: No Definite Risk - Focused Exam Vital Signs: Vital Signs Temp Pulse Resp BP Pulse Ox 10/16/19 18:04 99.7 F 117 H 18 147/88 H 100 Date Exam was Performed: 10/16/19 Time Exam was Performed: 19:32
== END 2019-10-16 19:48 | disposition home or self-care (01) ==
LOC: JD.ED 17:55
DX: J06.9 Acute upper respiratory infection, unspecified (principal); I10 Essential (primary) hypertension; Z79.899 Other long term (current) drug therapy
CPT/HCPCS: 87804; 96372; 99283; J1885

== ENCOUNTER 2020-08-22 12:27 | Emergency (ER) | payer MEDICAID ==
[2020-08-22 12:35] VITALS: BP 170/95; PULSE 99
--- NOTE | 2020-08-22 12:55 | EDM.PDOC ---
ED HPI GENERAL MEDICAL PROBLEM - General Chief Complaint: ENT Problem Stated Complaint: DENTAL COMPLAINT Time Seen by Provider: 08/22/20 12:48 Source of Information: Reports: Patient, RN Notes Reviewed History Limitations: Reports: No Limitations - History of Present Illness INITIAL COMMENTS - FREE TEXT/NARRATIVE: Patient is a 29-year-old female who presents to the ED for dental pain. She notes that a few days ago, she had a portion of her right lower molar break off, which she thinks is one of her wisdom teeth. She has been able to get by with Tylenol/ibuprofen as ibuprofen has taken the edge off however this morning she is having some pain radiating into her jaw and up to her ear around to the right side of her head. Last took medications at 11 AM. She has not had any fevers or chills or any cough/shortness of breath. She notes that she does not have dental insurance, so she has not sought dental care at this time. Right Lower Oral/Mouth Pain Score (Numeric/FACES): 10 - Related Data Allergies Allergy/AdvReac Type Severity Reaction Status Date / Time No Known Allergies Allergy Verified 08/22/20 12:35 Home Meds: Home Meds Acetaminophen/HYDROcodone [[place] 325-5 MG] 1 tab PO Q6H PRN #12 tablet 08/22/20 [Rx] Amoxicillin/Clavulanate K [Augmentin 875-125 MG] 1 tab PO BID #14 tablet 08/22/20 [Rx] Naproxen [Naprosyn] 500 mg PO Q12HR #14 tab 08/22/20 [Rx] Past Medical History - Past Health History Medical/Surgical History: Denies Medical/Surgical History Cardiovascular History: Reports: Hypertension Other Cardiovascular History: states had elevated BP during and that it is no longer an issue 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: , 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 ED EXAM, ENT - Physical Exam Exam: See Below Exam Limited By: No Limitations General Appearance: Alert, WD/WN, No Apparent Distress Mouth/Throat: Normal Inspection, Normal Gums, Normal Lips, Normal Oropharynx, Dental Pain (Right lower molar, entire dentition is in poor repair) Neck: Normal Inspection, Supple, Non-Tender, Full Range of Motion Respiratory/Chest: No Respiratory Distress, Lungs Clear, Normal Breath Sounds, No Accessory Muscle Use, Chest Non-Tender Cardiovascular: Normal Peripheral Pulses, Regular Rate, Rhythm, No Edema Neurological: Alert, Oriented, Normal Cognition, No Motor/Sensory Deficits Psychiatric: Normal Affect, Normal Mood Skin: Warm, Dry, Intact, Normal Color, No Rash Course - Vital Signs Last Recorded V/S: Last Vital Signs Temp 98 F 08/22/20 12:33 Pulse 99 08/22/20 12:33 Resp 16 08/22/20 12:33 BP 170/95 H 08/22/20 12:33 Pulse Ox 99 08/22/20 12:33 - Re-Assessments/Exams Free Text/Narrative Re-Assessment/Exam: 08/22/20 12:58 Patient presents to the ED for dental pain. We will get her some tablets of pain medication, Naprosyn and an antibiotic and discharge her home with general information of the [facility] in [place] for definitive dental management. Departure - Departure Time of Disposition: 12:53 Disposition: Home, Self-Care 01 Condition: Good Clinical Impression: Pain due to dental caries - Discharge Information *PRESCRIPTION DRUG MONITORING PROGRAM REVIEWED*: Yes *COPY OF PRESCRIPTION DRUG MONITORING REPORT IN PATIENT BAM: No Prescriptions: Amoxicillin/Clavulanate K [Augmentin 875-125 MG] 1 tab PO BID #14 tablet Naproxen [Naprosyn] 500 mg PO Q12HR #14 tab Acetaminophen/HYDROcodone [[place] 325-5 MG] 1 tab PO Q6H PRN #12 tablet PRN Reason: Pain Instructions: Pain Medicine Instructions, [id number] Referrals: Nelly Gee PA-C [Primary Care Provider] - Forms: ED Department Discharge Additional Instructions: You have been evaluated in the ED for your dental pain. You have been provided with a script for Augmentin. This was electronically sent to the Clinic pharmacy located in the [facility]. Please take this medication as directed. (1 tab twice daily for 7 days or until gone). Please note this antibiotic can take up to 48 hours to provide coverage. If you do not notice an improvement in the swelling within 3 days time I recommend you seek care for reevaluation for change in antibiotics. This antibiotic can cause diarrhea, recommend that you start a probiotic while taking this medication. You were given a prescription for Naprosyn, Please take 1 tab every 12 hours for pain relief. You were given a prescription for a strong pain medication, hydrocodone/acetaminophen 5/325 mg, please take 1 tab every 6 hours as needed for pain not relieved by Tylenol or ibuprofen alone. Please note this medication does contain Tylenol in it, so do not take more than 4000 mg in a 24- hour time span. These medications can be addictive, so please take as few as possible to achieve adequate pain control. These meds can also be quite constipating, recommend that you increase your oral fluid intake and take a stool softener like MiraLAX while taking these medications. Do not drive while taking this medication. You may use hot pack/ ice packs to the affected area as tolerated in 15-20 min soni intervals. You will ultimately need to find a dentist to provide definitive management of your dental pain. The [facility] in [place], [place], , is a clinic that has been known to take people that do not have dental insurance, and may provide payment plans. You might want to check with this provider, regarding your dental pain. Please return to the ED if your symptoms change or worsen. Sepsis Event Note (ED) - Evaluation Sepsis Screening Result: No Definite Risk - Focused Exam Vital Signs: Vital Signs Temp Pulse Resp BP Pulse Ox 08/22/20 12:33 98 F 99 16 170/95 H 99
== END 2020-08-22 13:12 | disposition home or self-care (01) ==
LOC: JD.ED 12:27
DX: K02.9 Dental caries, unspecified (principal); I10 Essential (primary) hypertension; Z79.899 Other long term (current) drug therapy
CPT/HCPCS: 99282; 99283

== ENCOUNTER 2023-02-28 11:14 | Emergency (ER) | payer MEDICAID, OTHER ==
[2023-02-28 11:38] VITALS: BP 152/91; PULSE 106
[2023-02-28] MEDS ORDERED: Sodium Chloride 0.9% 10 ML Syringe FLUSH PRN (12:04)
[2023-02-28] MEDS ORDERED: Sodium Chloride 0.9% 1,000 ML IV STA (12:05)
[2023-02-28] MEDS ORDERED: Ketorolac 30 MG/ML SDV IVPUSH ONE (12:05)
[2023-02-28] MEDS ORDERED: diphenhydrAMINE 50 MG/ML SDV IVPUSH ONE (12:06)
[2023-02-28] MEDS ORDERED: Ondansetron 4 MG/2 ML SDV IVPUSH ONE (12:07)
[2023-02-28 12:50] LABS: BASOPHILS ABSOLUTE AUTO 0.02 K/mm3 (0.01-0.08); BASOPHILS PERCENT AUTO 0.3 % (0.1-1.2); EOSINOPHILS PERCENT AUTO 1.3 (0.7-5.8); HEMATOCRIT 40.4 % (34.1-44.9); IMMATURE GRAN ABSOLUTE AUTO 0.02 K/mm3 (0.00-0.10); IMMATURE GRAN PERCENT AUTO 0.3 % (<=1.0); LYMPHOCYTES ABSOLUTE AUTO 2.54 K/mm3 (1.18-3.74); LYMPHOCYTES PERCENT AUTO 33.6 % (19.3-51.7); MEAN CORPUSCULAR HEMOGLOBIN 29.9 pg (25.6-32.2); MEAN CORPUSCULAR HGB CONC 34.7 g/dl (32.2-35.5); MEAN PLATELET VOLUME 10.2 fl (9.4-12.3); MONOCYTES ABSOLUTE AUTO 0.48 K/mm3 (0.24-0.36); MONOCYTES PERCENT AUTO 6.3 % (4.7-12.5); NEUTROPHILS ABSOLUTE AUTO 4.41 K/mm3 (1.56-6.13); NEUTROPHILS PERCENT AUTO 58.2 % (34.0-71.1); RED BLOOD CELL COUNT 4.69 M/mm3 (3.98-5.22); WHITE BLOOD CELL COUNT,WBC 7.57 K/mm3 (3.98-10.04)
[2023-02-28 12:56] LABS: MEAN CORPUSCULAR VOLUME 86.1 fl (79.4-94.8); PLATELET COUNT,PLT 272 K/mm3 (182-369)
[2023-02-28 13:20] LABS: ALANINE AMINOTRANSFERASE,ALT 43 U/L (14-59); ALBUMIN 3.9 g/dl (3.4-5.0); ALKALINE PHOSPHATASE 63 U/L (46-116); ANION GAP 13.1 (5-15); ASPARTATE AMNIOTRANSFERASE,AST 18 U/L (15-37); BILIRUBIN TOTAL 1.2 mg/dL (0.2-1.0); BLOOD UREA NITROGEN,BUN 9 mg/dL (7-18); BUN/CREATININE RATIO 12.9 (14-18); C-REACTIVE PROTEIN <0.2 mg/dL (<1.0); CALCIUM 8.8 mg/dL (8.5-10.1); CARBON DIOXIDE,CO2 27 mEq/L (21-32); CHLORIDE,CL 102 mEq/L (98-107); CREATININE 0.7 mg/dL (0.55-1.02); EST CRCL DRUG DOSING (CG) 91.25 mL/min; ESTIMATED GFR 118 mL/min (>60); GLUCOSE RANDOM 89 mg/dL (70-99); POTASSIUM,K 4.1 mEq/L (3.5-5.1); PROTEIN TOTAL,TP 7.9 g/dl (6.4-8.2); SODIUM,NA 138 mEq/L (136-145)
[2023-02-28 13:26] LABS: APPEARANCE,URINE CLEAR (Clear); BILIRUBIN,URINE NEGATIVE (Negative); COLOR,URINE YELLOW (Yellow); GLUCOSE,URINE NEGATIVE (Negative); KETONES,URINE NEGATIVE (Negative); LEUKOCYTE ESTERASE,URINE TRACE (Negative); NITRITE,URINE NEGATIVE (Negative); OCCULT BLOOD,URINE NEGATIVE (Negative); PROTEIN,URINE NEGATIVE (Negative); UROBILINOGEN,URINE 0.2 (0.2-1.0)
[2023-02-28 13:58] LABS: CORONAVIRUS COVID-19 NAA NEGATIVE (NEGATIVE); INFLUENZA A NAA NEGATIVE (NEGATIVE); RESPIRATORY SYNCYTIAL VIR NAA NEGATIVE (NEGATIVE)
[2023-02-28 14:15] LABS: BACTERIA,URINE FEW /hpf (FEW); MUCUS,URINE RARE /hpf (FEW); RBC,URINE 0-5 /hpf (0-5); WBC,URINE 0-5 /hpf (0-5)
[2023-02-28 14:57] LABS: T4 FREE 1.1 ng/dL (0.76-1.46); TSH 1.311 uIU/mL (0.358-3.74)
== END 2023-02-28 16:45 | disposition home or self-care (01) ==
LOC: JD.ED 11:14
DX: I10 Essential (primary) hypertension (principal); Z20.822 Contact with and (suspected) exposure to COVID-19
CPT/HCPCS: 0241U; 36415; 70450; 80053; 81001; 81025; 84439; 84443; 85025; 86140; 96374; 96375; 99284; J1200; J1885; J2405; J3490; J7030

== ENCOUNTER 2024-10-01 20:14 | Emergency (ER) | payer MEDICAID, OTHER ==
[2024-10-01 20:37] VITALS: BP 132/74; PULSE 108
[2024-10-01] MEDS: Ibuprofen 600 MG Tab PO ONE (22:20)
[2024-10-01] MEDS: Ondansetron 4 MG Tab.DIS PO ONE (22:21)
[2024-10-01] MEDS: Acetaminophen 325 MG Tab PO ONE (22:21)
== END 2024-10-01 22:32 | disposition home or self-care (01) ==
LOC: JD.ED 20:14
DX: S93.401A Sprain of unspecified ligament of right ankle, initial encounter (principal); I10 Essential (primary) hypertension; Z86.16 Personal history of COVID-19; X50.0XXA Overexertion from strenuous movement or load, initial encounter; Y93.89 Activity, other specified
CPT/HCPCS: 73610; 99283; A9270